=== PATIENT | male | born 1995 | race Caucasian/White ===

== ENCOUNTER 2017-02-25 15:26 | Emergency (ER) | payer OTHER ==
[~2017-02-25] VITALS: Ht 180.3 cm; Wt 97.7 kg
[2017-02-25] MEDS ORDERED: KETOROLAC TROMETHAMINE 60 MG/2 ML VIAL IM ONE (17:15)
[2017-02-25 17:33] VITALS: BP 126/75
== END 2017-02-25 17:35 | disposition home or self-care (01) ==
LOC: EMS 15:28
DX: M79.651 Pain in right thigh (principal)
CPT/HCPCS: 96372; 99283; J1885